=== PATIENT | male | born 1970 | race Caucasian/White ===

== ENCOUNTER 2019-03-11 09:09 | Day surgery (SDC) | payer OTHER ==
[2019-03-10 08:54] VITALS: BMI 33.9
[2019-03-11 11:29] VITALS: BP 102/60; PULSE 72; TEMP 98
--- NOTE | 2019-03-12 16:14 | PATH ---
Surgical Pathology Report Patient Name: TO AMAYA [facility]. Rec. #: [id number] /Age/Gender: 1970 (Age: 48) / M Account: [id number] Location: U-ENDOSCOPY Taken: 03/11/2019 Received: 03/11/2019 Reported: 03/12/2019 Physicians: Dwight Schaffer D.O. Specimen(s) Received PROXIMAL COLON POLYP Clinical History Screening colonoscopy Postoperative diagnosis: Colon polyps, diverticulosis, hemorrhoids Final Diagnosis PROXIMAL TRANSVERSE COLON, POLYP, BIOPSY: TUBULAR ADENOMA. Electronically Signed Jenniffer Royal M.D. Gross Description Received in formalin, labeled "proximal transverse colon polyp" is a quiroz, irregular portion of soft tissue measuring 0.3 cm. in greatest dimension. The specimen is submitted in toto in one cassette. /03/11/2019 saudi/03/11/2019
== END 2019-03-11 11:25 | disposition home or self-care (01) ==
LOC: JASU-ENDO 09:09 → JOR 09:09 → JASU-ENDO 11:25
PROVIDERS: ATTEND Internal Medicine Gastroenterology
PROC: 0DBL8ZX Excision of Transverse Colon, Via Natural or Artificial Opening Endoscopic, Diagnostic (ICD-10-PCS; principal; 2019-03-11 09:45)
DX: Z12.11 Encounter for screening for malignant neoplasm of colon (principal); K57.30 Diverticulosis of large intestine without perforation or abscess without bleeding; K64.8 Other hemorrhoids; D12.3 Benign neoplasm of transverse colon
CPT/HCPCS: 88305-TC